=== PATIENT | female | born 1975 | race Hispanic/Latino ===

== ENCOUNTER 2018-05-03 15:06 | Emergency (ER) | payer SELFPAY ==
[2018-05-03 16:15] LABS: Hemoglobin 14.5 g/dL (12.0-16.0)
[2018-05-03 16:20] LABS: BHCG - Serum Negative (NEGATIVE); Pregs Control Background? CLEAR/WHITE (CLR/WHITE); Pregs Control Bar Appear? YES (CONTROL BAR)
== END 2018-05-03 16:50 | disposition home or self-care (01) ==
LOC: MADERS 15:06
DX: N93.9 Abnormal uterine and vaginal bleeding, unspecified (principal); I10 Essential (primary) hypertension; Z79.899 Other long term (current) drug therapy
CPT/HCPCS: 84703; 85014; 85018; 99284